=== PATIENT | male | born 1940 | race Caucasian/White ===

== ENCOUNTER → 2016-10-16 | Outpatient (CLI) | payer OTHER ==
[~2016-10-16] MED LIST: ADVIN50/60 INH; ALBUAER19 INH; ALPOPS1510 OPB; AUGMENTIN PO; CARDIZEM PO; CHOL100010 PO; DICL1GEL28 TOP; DORZ1SOL OPB; FERR1TAB23 PO; FINA5TAB4 PO; FRS/40 PO; GFNSR600 PO; LATA0.009 OPB; METO5TAB25 PO; MISCCAP80 PO; NYSS/ MT; OXGN; OXYC1TAB3 PO; PANT40TA PO; POTA10LI PO; PRD10 PO; SENNTAB23 PO; SUCR1TAB PO
[2016-10-16 15:15] LABS: HEMATOCRIT 30.2 % (42-52); MEAN CELL VOLUME 83.4 fL (80-100); MEAN CORPUSCULAR HEMOGLOBIN 24.9 pg (25-34); MEAN CORPUSCULAR HGB CONC 29.8 g/dl (32-36); MEAN PLATELET VOLUME 8.7 fL (7.4-10.4); PLATELET COUNT 450 K/uL (130-400); RED BLOOD COUNT 3.62 M/uL (4.7-6.1); WHITE BLOOD COUNT 11.24 K/uL (4.8-10.8)
[2016-10-16 15:23] LABS: ALT/SGPT 31 U/L (12-78); BLOOD UREA NITROGEN 35 mg/dl (7-18); BUN/CREATININE RATIO 28.8 (10-20); CARBON DIOXIDE 40 mmol/L (21-32); CHLORIDE 94 mmol/L (98-107); GLUCOSE 152 mg/dl (70-99); POTASSIUM 2.6 mmol/L (3.5-5.1); SODIUM 142 mmol/L (136-145)
[2016-10-16 15:26] LABS: ALB/GLOB RATIO 0.5 (0.9-2); ALKALINE PHOSPHATASE 87 U/L (45-117); AST/SGOT 13 U/L (15-37)
== END | disposition home or self-care (01) ==
LOC: C.LABSPEC 15:06
PROVIDERS: ATTEND Internal Medicine
DX: J44.1 Chronic obstructive pulmonary disease with (acute) exacerbation (principal); I10 Essential (primary) hypertension; E11.40 Type 2 diabetes mellitus with diabetic neuropathy, unspecified; D64.9 Anemia, unspecified

== ENCOUNTER → 2016-10-23 | Outpatient (CLI) | payer OTHER ==
[2016-10-23 18:01] LABS: HEMATOCRIT 30.9 % (42-52); MEAN CELL VOLUME 84.2 fL (80-100); MEAN CORPUSCULAR HEMOGLOBIN 24.8 pg (25-34); MEAN CORPUSCULAR HGB CONC 29.4 g/dl (32-36); MEAN PLATELET VOLUME 8.5 fL (7.4-10.4); PLATELET COUNT 472 K/uL (130-400); RED BLOOD COUNT 3.67 M/uL (4.7-6.1); WHITE BLOOD COUNT 12.58 K/uL (4.8-10.8)
[2016-10-23 18:12] LABS: BLOOD UREA NITROGEN 28 mg/dl (7-18); BUN/CREATININE RATIO 23.7 (10-20); CARBON DIOXIDE 30 mmol/L (21-32); CHLORIDE 103 mmol/L (98-107); GLUCOSE 54 mg/dl (70-99); POTASSIUM 3.5 mmol/L (3.5-5.1); SODIUM 143 mmol/L (136-145)
[2016-10-23 18:13] LABS: ALT/SGPT 41 U/L (12-78); BLOOD UREA NITROGEN 28 mg/dl (7-18); BUN/CREATININE RATIO 23.5 (10-20); CARBON DIOXIDE 31 mmol/L (21-32); CHLORIDE 103 mmol/L (98-107); GLUCOSE 54 mg/dl (70-99); POTASSIUM 3.5 mmol/L (3.5-5.1); SODIUM 143 mmol/L (136-145)
[2016-10-23 18:16] LABS: ALB/GLOB RATIO 0.7 (0.9-2); ALKALINE PHOSPHATASE 96 U/L (45-117); AST/SGOT 16 U/L (15-37); PHOSPHORUS 2.4 mg/dl (2.5-4.9)
[2016-10-23 18:49] LABS: MEAN CELL VOLUME 84.7 fL (80-100); MEAN CORPUSCULAR HEMOGLOBIN 24.6 pg (25-34); MEAN PLATELET VOLUME 8.8 fL (7.4-10.4); PLATELET COUNT 499 K/uL (130-400); RED BLOOD COUNT 3.66 M/uL (4.7-6.1); WHITE BLOOD COUNT 11.99 K/uL (4.8-10.8)
[2016-10-23 18:51] LABS: COMPLETE YES; LYMPH ABS # 0.85 K/uL (1.2-3.4); LYMPHOCYTE % 7.1 %; META ABS # 0.11 K/uL (0-0); METAMYELOCYTE % 0.9 %; NEUTROPHILS % 82.2 %
== END | disposition home or self-care (01) ==
LOC: C.LABSPEC 16:44
PROVIDERS: ATTEND Internal Medicine
DX: E87.6 Hypokalemia (principal); D64.9 Anemia, unspecified

== ENCOUNTER → 2016-10-30 | Outpatient (CLI) | payer OTHER ==
[2016-10-30 17:51] LABS: BASO % 0.2 %; BASO ABS # 0.04 K/uL (0-0.2); COMPLETE YES; HEMATOCRIT 31.7 % (42-52); IG% 2.1 %; LYMPH % 2.4 %; MEAN CELL VOLUME 82.3 fL (80-100); MEAN CORPUSCULAR HEMOGLOBIN 24.4 pg (25-34); MEAN CORPUSCULAR HGB CONC 29.7 g/dl (32-36); MEAN PLATELET VOLUME 8.6 fL (7.4-10.4); MONO % 2.4 %; NEUT % 92.9 %; PLATELET COUNT 474 K/uL (130-400); RED BLOOD COUNT 3.85 M/uL (4.7-6.1); WHITE BLOOD COUNT 16.59 K/uL (4.8-10.8)
[2016-10-30 18:03] LABS: ALT/SGPT 44 U/L (12-78); BLOOD UREA NITROGEN 31 mg/dl (7-18); BUN/CREATININE RATIO 23.8 (10-20); CALCIUM 9.2 mg/dl (8.5-10.1); CARBON DIOXIDE 33 mmol/L (21-32); CHLORIDE 95 mmol/L (98-107); GLUCOSE 281 mg/dl (70-99); POTASSIUM 3.2 mmol/L (3.5-5.1); SODIUM 139 mmol/L (136-145)
[2016-10-30 18:06] LABS: ALB/GLOB RATIO 0.7 (0.9-2); ALKALINE PHOSPHATASE 97 U/L (45-117); AST/SGOT 13 U/L (15-37)
--- NOTE | 2016-11-08 06:26 | CODING QUERY NO DIAGNOSIS ---
Valid Physician Order Needed A valid physician order must be submitted in order to properly bill for the service(s) provided, including date of service(s), valid diagnosis, and physician signature. If these tests are done on a recurring basis the original physician order must be submitted in order to code and bill for the service(s) provided. Please fax us the original, signed physician order so that we may expedite billing to [phone] DOS 10/30/16 * CMP *CBC Thank you! Saskia [facility]
== END | disposition home or self-care (01) ==
LOC: C.LABSPEC 10:46
PROVIDERS: ATTEND Internal Medicine Critical Care Medicine
DX: J69.0 Pneumonitis due to inhalation of food and vomit (principal); Z51.81 Encounter for therapeutic drug level monitoring; Z79.2 Long term (current) use of antibiotics

== ENCOUNTER → 2016-11-06 | Outpatient (CLI) | payer OTHER ==
[2016-11-06 18:25] LABS: HEMATOCRIT 31.6 % (42-52); MEAN CELL VOLUME 83.2 fL (80-100); MEAN CORPUSCULAR HEMOGLOBIN 24.2 pg (25-34); MEAN CORPUSCULAR HGB CONC 29.1 g/dl (32-36); PLATELET COUNT 318 K/uL (130-400); WHITE BLOOD COUNT 20.05 K/uL (4.8-10.8)
[2016-11-06 18:33] LABS: ALT/SGPT 32 U/L (12-78); AST/SGOT 10 U/L (15-37); BLOOD UREA NITROGEN 34 mg/dl (7-18); BUN/CREATININE RATIO 28.5 (10-20); CALCIUM 9.1 mg/dl (8.5-10.1); CARBON DIOXIDE 40 mmol/L (21-32); CHLORIDE 95 mmol/L (98-107); GLUCOSE 196 mg/dl (70-99); POTASSIUM 2.7 mmol/L (3.5-5.1); SODIUM 142 mmol/L (136-145)
[2016-11-06 18:35] LABS: ALB/GLOB RATIO 0.6 (0.9-2); ALKALINE PHOSPHATASE 95 U/L (45-117)
[2016-11-06 18:54] LABS: COMPLETE YES; LYMPH ABS # 0.18 K/uL (1.2-3.4); LYMPHOCYTE % 0.9 %; NEUTROPHILS % 95.6 %; POLYCHROMASIA 1+
== END | disposition home or self-care (01) ==
LOC: C.LABSPEC 17:34
PROVIDERS: ATTEND Internal Medicine Geriatric Medicine
DX: J44.1 Chronic obstructive pulmonary disease with (acute) exacerbation (principal); J44.0 Chronic obstructive pulmonary disease with (acute) lower respiratory infection; E11.40 Type 2 diabetes mellitus with diabetic neuropathy, unspecified; D64.9 Anemia, unspecified; R06.02 Shortness of breath; Z45.2 Encounter for adjustment and management of vascular access device

== ENCOUNTER → 2016-11-13 | Outpatient (CLI) | payer OTHER ==
[2016-11-13 17:05] LABS: BLOOD UREA NITROGEN 50 mg/dl (7-18); BUN/CREATININE RATIO 29.5 (10-20); CALCIUM 8.8 mg/dl (8.5-10.1); CARBON DIOXIDE 39 mmol/L (21-32); CHLORIDE 92 mmol/L (98-107); GLUCOSE 112 mg/dl (70-99); POTASSIUM 3.7 mmol/L (3.5-5.1); SODIUM 139 mmol/L (136-145)
[2016-11-13 17:22] LABS: ALB/GLOB RATIO 0.5 (0.9-2); ALKALINE PHOSPHATASE 103 U/L (45-117); ALT/SGPT 33 U/L (12-78); AST/SGOT 16 U/L (15-37)
[2016-11-13 17:26] LABS: HEMATOCRIT 36.4 % (42-52); MEAN CELL VOLUME 80.7 fL (80-100); MEAN CORPUSCULAR HEMOGLOBIN 23.7 pg (25-34); MEAN CORPUSCULAR HGB CONC 29.4 g/dl (32-36); MEAN PLATELET VOLUME 8.8 fL (7.4-10.4); PLATELET COUNT 370 K/uL (130-400); RED BLOOD COUNT 4.51 M/uL (4.7-6.1); WHITE BLOOD COUNT 34.92 K/uL (4.8-10.8)
[2016-11-13 17:29] LABS: COMPLETE YES; EOSINOPHIL % 0.4 %; META ABS # 0.14 K/uL (0-0); METAMYELOCYTE % 0.4 %; MYELOCYTE % 0.9 %; NEUTROPHILS % 94.4 %; PLT ESTIMATE INCREASED; POLYCHROMASIA 1+; STOMATOCYTE 1+
== END | disposition home or self-care (01) ==
LOC: C.LABSPEC 16:33
PROVIDERS: ATTEND Internal Medicine
DX: J44.1 Chronic obstructive pulmonary disease with (acute) exacerbation (principal); R06.02 Shortness of breath; D64.9 Anemia, unspecified; Z99.81 Dependence on supplemental oxygen